=== PATIENT | female | born 1985 | race Caucasian/White ===

== ENCOUNTER 2017-12-02 10:35 | Day surgery (SDC) | payer BC, OTHER ==
[2017-12-01 08:46] VITALS: BMI 21.9
[2017-12-02 12:54] VITALS: TEMP 97.6
[2017-12-02 13:41] VITALS: BP 112/61; PULSE 60
--- NOTE | 2017-12-06 09:50 | PATH ---
Surgical Pathology Report Patient Name: EILEEN CANCHOLA [facility]. Rec. #: [id number] /Age/Gender: 1985 (Age: 32) / F Account: [id number] Location: [facility]-ENDOSCOPY Taken: 12/02/2017 Received: 12/02/2017 Reported: 12/06/2017 Physicians: Gustavo Pennington M.D. Specimen(s) Received A: BX 2ND PORTION DUODENUM POLYP B: BX 2ND PORTION DUODENUM AND BULB C: BX ANTRUM D: BX ILEUM E: BX CECUM Clinical History Irritable bowel syndrome, constipation, bleeding external hemorrhoids Postoperative diagnosis: Duodenal polyp, hiatal hernia, GERD, gastritis, microscopic colitis Final Diagnosis A. SECOND PORTION DUODENAL POLYP, BIOPSY: DUODENAL MUCOSA WITH NO DIAGNOSTIC ABNORMALITIES. B. SECOND PORTION DUODENUM AND BULB, BIOPSY: DUODENAL MUCOSA WITH FOCAL REACTIVE LYMPHOID FOLLICLE. C. ANTRUM, BIOPSY: GASTRIC MUCOSA WITH REACTIVE GASTROPATHY. IMMUNOSTAIN FOR H. PYLORI ORGANISMS IS NEGATIVE. D. ILEUM, BIOPSY: SMALL INTESTINAL MUCOSA WITH REACTIVE LYMPHOID FOLLICLE. E. CECUM, BIOPSY: COLONIC MUCOSA WITH NO DIAGNOSTIC ABNORMALITIES. Electronically Signed Barry Fuentes M.D. Gross Description A. Received in formalin, labeled "biopsy second portion duodenum polyp" are 3 ivey, irregular portions of soft tissue ranging from 0.1-0.3 cm. in greatest dimension. The specimens are submitted in toto in one cassette. B. Received in formalin, labeled "biopsy second portion of duodenum and bulb" are 4 ivey, irregular portions of soft tissue ranging from 0.3-0.4 cm. in greatest dimension. The specimens are submitted in toto in one cassette. C. Received in formalin, labeled "biopsy antrum" are 4 ivey, irregular portions of soft tissue ranging from 0.1-0.6 cm. in greatest dimension. The specimens are submitted in toto in one cassette. D. Received in formalin, labeled "biopsy ileum" are 2 ivey, irregular portions of soft tissue measuring 0.2 and 0.3 cm. in greatest dimension. The specimens are submitted in toto in one cassette. E. Received in formalin, labeled "biopsy cecum" are 3 ivey, irregular portions of soft tissue ranging from 0.2-0.3 cm. in greatest dimension. The specimens are submitted in toto in one cassette. DL12/02/2017 saudi12/02/2017
== END 2017-12-02 14:10 | disposition home or self-care (01) ==
LOC: JASU-ENDO 10:35
PROVIDERS: ATTEND Internal Medicine Gastroenterology
PROC: 0DBB8ZX Excision of Ileum, Via Natural or Artificial Opening Endoscopic, Diagnostic (ICD-10-PCS; 2017-12-02)
PROC: 0DB98ZX Excision of Duodenum, Via Natural or Artificial Opening Endoscopic, Diagnostic (ICD-10-PCS; 2017-12-02)
PROC: 0DB68ZX Excision of Stomach, Via Natural or Artificial Opening Endoscopic, Diagnostic (ICD-10-PCS; 2017-12-02)
PROC: 0DBH8ZX Excision of Cecum, Via Natural or Artificial Opening Endoscopic, Diagnostic (ICD-10-PCS; principal; 2017-12-02 12:00)
DX: Z12.11 Encounter for screening for malignant neoplasm of colon (principal); K92.1 Melena; Z83.71 Family history of colonic polyps; K64.8 Other hemorrhoids; K21.0 Gastro-esophageal reflux disease with esophagitis; K44.9 Diaphragmatic hernia without obstruction or gangrene; K29.70 Gastritis, unspecified, without bleeding; K31.7 Polyp of stomach and duodenum
CPT/HCPCS: 84703; 88305-TC; 88342-TC